=== PATIENT | male | born 1990 | race Caucasian/White ===

== ENCOUNTER 2022-10-03 07:23 | Emergency (ER) | payer MEDICAID ==
[~2022-10-03] VITALS: Ht 185.4 cm; Wt 95.0 kg
[2022-10-03 10:39] VITALS: BP 144/76
== END 2022-10-03 10:54 | disposition home or self-care (01) ==
LOC: ER 07:27
DX: S43.51XA Sprain of right acromioclavicular joint, initial encounter (principal); M25.511 Pain in right shoulder; X58.XXXA Exposure to other specified factors, initial encounter; Y93.89 Activity, other specified; Y92.89 Other specified places as the place of occurrence of the external cause; Y99.8 Other external cause status
CPT/HCPCS: 73030; 99283; A4565

== ENCOUNTER 2024-04-12 12:26 | Emergency (ER) | payer BC, MEDICAID ==
[~2024-04-12] VITALS: Ht 185.4 cm; Wt 93.2 kg
[2024-04-12 12:31] VITALS: BP 127/90; PULSE 75; RESP 18; TEMP 98.7; O2SAT 98
[2024-04-12] MEDS: LIDOcaine 1% W/epiNEPHrine 1:100,000 20ml vial SQ ONE (13:16)
[2024-04-12] MEDS ORDERED: CEPH-585 PO (13:19)
[2024-04-12] MEDS ORDERED: HYDR-3965 PO (13:30)
== END 2024-04-12 13:32 | disposition home or self-care (01) ==
LOC: ER 12:27
DX: S61.411A Laceration without foreign body of right hand, initial encounter (principal); Z79.2 Long term (current) use of antibiotics; W26.8XXA Contact with other sharp object(s), not elsewhere classified, initial encounter; Y93.89 Activity, other specified; Y92.89 Other specified places as the place of occurrence of the external cause; Y99.8 Other external cause status
CPT/HCPCS: 12001; 99283; J3490; A6449

== ENCOUNTER 2024-08-12 05:28 | Emergency (ER) | payer BC, MEDICAID ==
[~2024-08-12] VITALS: Ht 185.4 cm; Wt 101.5 kg
[2024-08-12 06:22] LABS: BASOPHILS % (AUTO) 0.1 % (0-1); EOSINOPHILS # (AUTO) 0.1 X10'3 (0-0.9); EOSINOPHILS % (AUTO) 0.5 % (0-6); HEMATOCRIT 45.8 % (42.0-52.0); HEMOGLOBIN 15.4 g/dl (14.0-17.9); LYMPHOCYTES % (AUTO) 8.4 % (21-51); MEAN CORPUSCULAR HEMOGLOBIN 30.9 PG (27.0-31.0); MEAN CORPUSCULAR HGB CONC 33.6 g/dL (33.0-36.5); MEAN CORPUSCULAR VOLUME 91.9 FL (78-98); MEAN PLATELET VOLUME 9.2 FL (7.4-10.4); MONOCYTES # (AUTO) 0.9 X10'3 (0-0.9); NEUTROPHILS # (AUTO) 9.7 X10'3 (1.8-7.7); PLATELET COUNT 218 X10'3 (140-440); RED BLOOD COUNT 4.99 X10'6 (4.70-6.10); RED CELL DISTRIBUTION WIDTH 13.6 % (11.5-14.5); WHITE BLOOD COUNT 11.6 X10'3 (4.5-11.0)
[2024-08-12 06:23] LABS: ALANINE AMINOTRANSFERASE 42 U/L (12-78); ALBUMIN 3.2 G/DL (3.4-5.0); ALBUMIN/GLOBULIN RATIO 0.9 (1.1-1.5); ALKALINE PHOSPHATASE 47 IU/L (46-116); ANION GAP 5 (8-16); ASPARTATE AMINO TRANSFERASE 23 U/L (10-37); BILIRUBIN,TOTAL 0.8 MG/DL (0.1-1.0); BLOOD UREA NITROGEN 12 MG/DL (7-18); BUN/CREATININE RATIO 9.4 (10.0-20.0); CALCIUM 8.9 MG/DL (8.5-10.1); CHLORIDE 105 MMOL/L (99-107); CREATININE 1.27 MG/DL (0.60-1.10); GLUCOSE 105 MG/DL (70-104); LIPASE 30 U/L (16-77); POTASSIUM 4.2 MMOL/L (3.5-5.1); SODIUM 140 MMOL/L (135-145); TOTAL CARBON DIOXIDE 30.3 MMOL/L (24-32); TOTAL PROTEIN 6.9 G/DL (6.4-8.2); eCRCL 93 ML/MIN; eGFR 65 ML/MIN
[2024-08-12 06:29] LABS: BILIRUBIN,URINE NEGATIVE (Neg); CLARITY,URINE SLIGHTLY CLOUDY (Clear); COLOR,URINE YELLOW (Yellow); GLUCOSE, URINE NEGATIVE (Neg); KETONES,URINE NEGATIVE (Neg); LEUKOCYTE ESTERASE ,URINE NEGATIVE (Neg); NITRITES, URINE NEGATIVE (Neg); OCCULT BLOOD,URINE NEGATIVE (Neg); PROTEIN,URINE NEGATIVE (Neg); UROBILINOGEN,URINE 0.2 E.U/dL (0.2-1.0)
[2024-08-12 06:35] LABS: UA COLLECTION TYPE URINAL
[2024-08-12 06:36] LABS: BACTERIA,URINE FEW /HPF (Neg); RBC,URINE 0-2 /HPF (0-2); SQUAMOUS EPITHELIAL CELL,UR FEW /LPF (FEW); WBC,URINE 0-4 /HPF (0-4)
[2024-08-12 06:37] LABS: AMORPHOUS PHOSPHATES 2+
[2024-08-12 06:38] LABS: MUCUS STRANDS FEW /LPF (Neg)
[2024-08-12] MEDS: morphine 2 MG/ML inj. syringe IV PRN (07:01)
[2024-08-12] MEDS: normal saline 1000ML IV soln IVB ONE (07:02)
[2024-08-12] MEDS ORDERED: NO HOME MEDS (07:12)
[2024-08-12] MEDS ORDERED: iohexol 300mg/ml 100ml inj. ONE (07:39)
[2024-08-12] MEDS ORDERED: METR-159 PO (08:30)
[2024-08-12] MEDS ORDERED: SULF1TAB49 PO (08:30)
[2024-08-12] MEDS ORDERED: ACET-3068 PO (08:32)
[2024-08-12] MEDS: sulfamethoxazole/trimethoprim DS (800/160mg) tablet PO ONE (08:56)
[2024-08-12] MEDS: metroNIDAZOLE 500mg tablet PO ONE (08:57)
[2024-08-12 09:12] VITALS: BP 126/77; PULSE 71; RESP 14; TEMP 98.3; O2SAT 99
== END 2024-08-12 09:17 | disposition home or self-care (01) ==
LOC: ER 05:29
DX: K57.92 Diverticulitis of intestine, part unspecified, without perforation or abscess without bleeding (principal); R10.32 Left lower quadrant pain; Z72.89 Other problems related to lifestyle
CPT/HCPCS: 36415; 71045; 74177; 80053; 81001; 83605; 83690; 85025; 87040; 96361; 96374; 96376; 99285; J2270; J7030; Q9967